=== PATIENT | male | born 1970 | race Caucasian/White ===

== ENCOUNTER 2023-12-21 08:46 | Day surgery (SDC) | payer OTHER, SELFPAY ==
[2023-12-19 12:21] VITALS: BMI 33.2
[2023-12-21] VITALS (7 sets, daily range): BP systolic 110–137; BP diastolic 71–98; PULSE 61–88; RESP 18; TEMP 36.1–36.6; O2SAT 96–98
[2023-12-21] MEDS: LACTATED RINGERS 1000ML 1,000 ML 25 ML IV (09:03)
--- NOTE | 2023-12-21 10:04 | P.PNANES_ITS ---
[facility] Disclaimer: The information contained in this section may have been updated after the patient was seen, as this information can be updated by other users. Medical History Testosterone deficiency Surgical History History of extraction of renal calculus History of cholecystectomy Family History Grandfather Cancer Family/Other Cancer Social History Smoking Status: Never smoker alcohol intake: current alcohol intake frequency: holidays/special occasions only substance use type: denies use current occupational status: employed Travel in the last 8 weeks: None [facility] Anesthesia Checklist Patient Identification Patient Identification: Arm Band, Family and Verbal (Name & ) Structural Data Admitted From: Home Planned Operative Procedure/s: Colonoscopy Consent for Planned Operative Procedure(s) Verified: Yes Verified Documents: History and Physical NPO Status Verified Time NPO: 07:00 Additional verifications Patient : No Anesthesia Reactions: No Cardiovascular Assessment Heart Sounds: S1 & S2 Pulse Rhythm: Irregular Peripheral Edema: No Airway Assessment Mallampati Score:: Class II C-Spine Mobility Assessed: Yes (FROM Demonstrated) TMJ Mobility Assessed: Yes Dentition: Dentures-good fit (Nothing loose per pt.) Neurological Assessment Level of Consciousness: Awake, Alert, Appropriate and Follows Commands Hx Seizures: No Numbness or tingling in extremities: No Anesthesia Plan Anesthesia Risk discussed: Yes Anesthesia Plan: Verified ASA Class: II Anesthesia Type: MAC
--- NOTE | 2023-12-21 10:45 | [facility].SCOPE ---
Procedure: Date: 12/21/23 Patient Date of :: 1970 Procedure Performed:: Colonoscopy Indications:: The patient is a 52-year-old who presents for screening colonoscopy. This is the patient's first colonoscopy. Performing Provider:: Rasta Doe MD Referring Provider:: Chasity Lora APRN Sedation:: See RN records Procedure:: After placing the patient in the left lateral decubitus position, the colonoscopy was gently inserted into the rectum and under direct visualization advanced to the cecum which was identified by transillumination in the right lower quadrant, identification of the ileocecal valve, appendiceal orifice, and cecal strap. Color, texture, mucosa, and anatomy of the colon were carefully examined with the scope. Findings:: The quality of the bowel preparation was excellent. There was a small sessile polyp (4 to 6 mm) in size in the ascending colon. The polyp was removed by cold snare polypectomy. Resection was complete and the polyp was retrieved. There were 2 sessile polyps in the mid to distal sigmoid: Both less than 5 mm in size. The polyps were removed by cold snare polypectomy. Resection was complete and the polyps were retrieved. Remaining colon appeared normal. Retroflexion view of the rectum internal hemorrhoids were seen. Impression: Polyp of the ascending colon Polyps of the sigmoid colon Recommendations:: Await pathology result Repeat colonoscopy in 3 to 5 years depending on pathology results Complications:: None Estimated blood obtained (mL): 0 Colonoscopy Component Colonoscopy Component Was a colonoscopy performed during today's procedure?: Yes Recommended follow up colonoscopy of at least 10 years?: Yes
== END 2023-12-21 11:35 | disposition home or self-care (01) ==
PROVIDERS: PCP Family Medicine; Visit Provider Internal Medicine
PROC: 0DJD8ZZ Inspection of Lower Intestinal Tract, Via Natural or Artificial Opening Endoscopic (ICD-10-PCS; CPT 45378; principal; 2023-12-21 10:00)
DX: Z12.11 Encounter for screening for malignant neoplasm of colon (principal); D12.2 Benign neoplasm of ascending colon; D12.5 Benign neoplasm of sigmoid colon; K64.8 Other hemorrhoids
CPT/HCPCS: 45385; J7120